=== PATIENT | female | born 1935 | race Caucasian/White ===

== ENCOUNTER 2018-09-12 08:06 | Day surgery (SDC) | payer MEDICARE ==
[~2018-09-12] VITALS: Ht 154.9 cm; Wt 56.3 kg
[2018-09-12 08:56] VITALS: BP 164/77
[2018-09-12] MEDS ORDERED: SODIUM CHLORIDE 0.9% 1,000 ML IV SCH (09:45)
[2018-09-12] MEDS ORDERED: INSU100I13 SC (09:51)
[2018-09-12] MEDS ORDERED: CHOL500050 PO (09:51)
[2018-09-12] MEDS ORDERED: LISI-170 PO (09:51)
[2018-09-12] MEDS ORDERED: BUPIVACAINE/PF-EPI 0.5% 1:200K ONE (10:38)
[2018-09-12] MEDS ORDERED: FENTANYL PF 100 MCG/2ML ONE (12:12)
[2018-09-12] MEDS ORDERED: PROPOFOL 10 MG/ML, 20ML ONE (12:26)
[2018-09-12] MEDS ORDERED: SUCCINYLCHOLINE 20 MG/ML, 10ML ONE (12:26)
[2018-09-12] MEDS ORDERED: CEFAZOLIN 1,000 MG ONE (12:26)
[2018-09-12] MEDS ORDERED: LIDOCAINE 2% 100MG/5ML SYRINGE ONE (12:26)
[2018-09-12] MEDS ORDERED: FENTANYL PF 100 MCG/2ML IV PRN (12:30)
[2018-09-12] MEDS ORDERED: hydrALAzine 20 MG/ML, 1ML IV PRN (12:30)
[2018-09-12] MEDS ORDERED: OXYcodone 5 MG/5 ML ORAL.SOL UDC PO PRN (12:30)
[2018-09-12] MEDS ORDERED: LABETALOL 5MG/ML, 20ML IV PRN (12:30)
[2018-09-12] MEDS ORDERED: HYDROmorphone 2 MG/ML, 1ML IVPush PRN (12:30)
[2018-09-12] MEDS ORDERED: ACETAMINOPHEN 325 MG TABLET PO PRN (12:30)
[2018-09-12] MEDS ORDERED: OXYcodone 5 MG/5 ML ORAL.SOL UDC ONE (13:12)
== END 2018-09-12 15:45 | disposition home or self-care (01) ==
LOC: OUT 08:06 → EDBD 13:30 → OUT 15:45
PROVIDERS: ATTEND Surgery
DX: E11.22 Type 2 diabetes mellitus with diabetic chronic kidney disease (principal); I12.0 Hypertensive chronic kidney disease with stage 5 chronic kidney disease or end stage renal disease; N18.6 End stage renal disease; Z88.6 Allergy status to analgesic agent; Z88.1 Allergy status to other antibiotic agents; Z91.040 Latex allergy status; Z79.899 Other long term (current) drug therapy
CPT/HCPCS: 49324; 80047; 82962; 93005; C1750; J0330; J0690; J2704; J3010; J7030